=== PATIENT | female | born 1950 | race Caucasian/White ===

== ENCOUNTER → 2023-10-14 06:20 | Day surgery (SDC) | payer BC, SELFPAY | LOC: GI 06:20 | PROVIDERS: ATTENDING PHYSICIAN Internal Medicine Gastroenterology; FAMILY PHYSICIAN Internal Medicine | DX: K63.5 Polyp of colon (principal); K57.30 Diverticulosis of large intestine without perforation or abscess without bleeding; D12.8 Benign neoplasm of rectum; Z86.010 Personal history of colon polyps | CPT/HCPCS: 45380; 88305 ==

== ENCOUNTER → 2023-10-21 14:29 | Outpatient (REF) | payer BC, SELFPAY ==
[2023-10-21 15:35] LABS: ALT (SGPT) 36 U/L (0-35); AST (SGOT) 34 U/L (14-36); Alkaline Phosphatase 56 U/L (38-126); Blood Urea Nitrogen 35 mg/dl (7-17); Calcium 9.8 mg/dl (8.4-10.2); Carbon Dioxide 31 mmol/L (22-30); Chloride 96 mmol/L (98-107); Glucose 104 mg/dl (70-99); Potassium 4.8 mmol/L (3.5-5.1); Sodium 134 mmol/L (135-145); Total Bilirubin 0.6 mg/dl (0.2-1.3); Total Protein 6.7 g/dl (6.3-8.2); eGFR 59.86
== END ==
LOC: REG 14:29
PROVIDERS: ATTENDING PHYSICIAN Physician Assistant Medical
DX: E87.8 Other disorders of electrolyte and fluid balance, not elsewhere classified (principal)
CPT/HCPCS: 36415; 80053

== ENCOUNTER → 2023-11-09 14:04 | Outpatient (REF) | payer BC, SELFPAY | LOC: WDC 14:04 | PROVIDERS: ATTENDING PHYSICIAN Physician Assistant Medical; FAMILY PHYSICIAN Internal Medicine | DX: M81.0 Age-related osteoporosis without current pathological fracture (principal); Z12.31 Encounter for screening mammogram for malignant neoplasm of breast; Z85.3 Personal history of malignant neoplasm of breast | CPT/HCPCS: 77063; 77067; 77080 ==

== ENCOUNTER → 2024-06-20 08:32 | Outpatient (REF) | payer BC, SELFPAY ==
[2024-06-20 09:48] LABS: % Basophils 1.6 % (0-2); % Eosinophils 12.5 % (0-6); % Immature Granulocytes 0.7 % (0-0.5); % Lymphocytes 32.3 % (20.5-51.1); % Monocytes 11.2 % (1.7-9.3); % Neutrophils 41.7 % (42.2-75.2); Absolute Basophils 0.1 10^3/uL (0-0.2); Absolute Eosinophils 0.6 10^3/uL (0-0.7); Absolute Lymphocytes 1.4 10^3/uL (1.2-3.4); Absolute Monocytes 0.5 10^3/uL (0.1-0.6); Absolute Neutrophils 1.8 10^3/uL (1.4-6.5); Hematocrit 36.1 % (37.0-47.0); Hemoglobin 12.3 g/dL (12.0-16.0); Mean Corp Hgb Conc. 34.1 g/dL (33.0-37.0); Mean Corpuscular Hgb 30.8 pg (27.0-31.0); Mean Corpuscular Volume 90.5 fL (81.0-99.0); Mean Platelet Volume 9.4 fL (7.4-10.4); Nucleated Red Blood Cells % 0 %; Platelet Count 294 10^3/uL (130-400); Red Blood Cell Count 3.99 10^6/uL (4.20-5.40); Red Cell Dist. Width 14.8 % (11.5-14.5); White Blood Cell Count 4.4 10^3/uL (4.8-10.8)
[2024-06-20 10:30] LABS: ALT (SGPT) 22 U/L (0-35); AST (SGOT) 29 U/L (14-36); Albumin 4.3 g/dl (3.5-5.0); Alkaline Phosphatase 45 U/L (38-126); Blood Urea Nitrogen 21 mg/dl (7-17); Calcium 9.7 mg/dl (8.4-10.2); Carbon Dioxide 28 mmol/L (22-30); Chloride 96 mmol/L (98-107); Glucose 86 mg/dl (70-99); Iron 110 ug/dl (37-170); Sodium 133 mmol/L (135-145); Total Bilirubin 0.7 mg/dl (0.2-1.3); Total Cholesterol 225 mg/dl (50-199); Triglyceride 114 mg/dl (10-149); Very Low Density Lipoprotein 22 mg/dl (0-30); eGFR > 60.00
[2024-06-20 10:39] LABS: HDL Cholesterol 111 mg/dl; LDL Cholesterol, Calculated 92 mg/dl; Percent Saturation 36 % (20-50); Total Iron Binding Capacity 302 ug/dl (265-497)
[2024-06-20 10:47] LABS: Vitamin D, 25-OH*** 46.1 ng/mL (30-80)
[2024-06-20 10:56] LABS: Glycohemoglobin (HgbA1c) 5.2 % (4.0-5.6)
[2024-06-20 11:00] LABS: Microalbumin, Random Urine < 0.6 mg/dl (0.6-1.7)
[2024-06-20 11:04] LABS: Ferritin 22.2 ng/ml (11.1-264.0)
[2024-06-20 11:35] LABS: Folate > 20.0 ng/ml (2.76-20); Vitamin B12 724 pg/ml (239-931)
== END ==
LOC: REG 08:32
PROVIDERS: ATTENDING PHYSICIAN Family Medicine
DX: R73.09 Other abnormal glucose (principal); R94.4 Abnormal results of kidney function studies; E78.00 Pure hypercholesterolemia, unspecified; D72.819 Decreased white blood cell count, unspecified; D64.9 Anemia, unspecified; E22.2 Syndrome of inappropriate secretion of antidiuretic hormone; I10 Essential (primary) hypertension; R74.8 Abnormal levels of other serum enzymes; M81.0 Age-related osteoporosis without current pathological fracture; R79.89 Other specified abnormal findings of blood chemistry
CPT/HCPCS: 36415; 80053; 80061; 82043; 82306; 82570; 82607; 82728; 82746; 83036; 83540; 83550; 85025

== ENCOUNTER 2024-09-12 06:29 | Day surgery (SDC) | payer BC, SELFPAY ==
[2024-09-11 11:33] LABS: Hematocrit 36.5 % (37.0-47.0); Mean Corp Hgb Conc. 32.9 g/dL (33.0-37.0); Mean Corpuscular Hgb 30.4 pg (27.0-31.0); Mean Corpuscular Volume 92.4 fL (81.0-99.0); Mean Platelet Volume 9.5 fL (7.4-10.4); Platelet Count 311 10^3/uL (130-400); Red Blood Cell Count 3.95 10^6/uL (4.20-5.40); Red Cell Dist. Width 14.6 % (11.5-14.5); White Blood Cell Count 5.1 10^3/uL (4.8-10.8)
[2024-09-11 11:57] LABS: Blood Urea Nitrogen 28 mg/dl (7-17); Calcium 9.4 mg/dl (8.4-10.2); Carbon Dioxide 27 mmol/L (22-30); Chloride 97 mmol/L (98-107); Glucose 91 mg/dl (70-99); Potassium 4.7 mmol/L (3.5-5.1); Sodium 132 mmol/L (135-145); eGFR > 60.00
[2024-09-11 13:34] VITALS: BMI 23.0
[2024-09-12] VITALS (8 sets, daily range): BP systolic 133–156; BP diastolic 60–81; BMI 23.0
[2024-09-12] MEDS: Pyridium 200 MG PO (13:53)
[2024-09-12] MEDS: HEPARIN 5000 UNITS SC (13:54)
[2024-09-12] MEDS: NORMOSOL-R/PLASMALYTE-A 1000 IV (13:55)
== END 2024-09-12 19:55 | disposition home or self-care (01) ==
LOC: SDS 06:29
PROVIDERS: ATTENDING PHYSICIAN Obstetrics & Gynecology; FAMILY PHYSICIAN Family Medicine
DX: N81.3 Complete uterovaginal prolapse (principal); N39.3 Stress incontinence (female) (male); N95.8 Other specified menopausal and perimenopausal disorders; D25.1 Intramural leiomyoma of uterus; D25.0 Submucous leiomyoma of uterus; N83.8 Other noninflammatory disorders of ovary, fallopian tube and broad ligament
CPT/HCPCS: 57425; 58571; 57250; 57288; 88305; 36415; 80048; 85027; 86850; 86900; 86901; 93005; C1763; C1771; J1580

== ENCOUNTER → 2024-11-14 08:45 | Outpatient (REF) | payer BC, SELFPAY | LOC: WDC 08:45 | PROVIDERS: ATTENDING PHYSICIAN Obstetrics & Gynecology; FAMILY PHYSICIAN Family Medicine | DX: Z12.31 Encounter for screening mammogram for malignant neoplasm of breast (principal) | CPT/HCPCS: 77063; 77067 ==

== ENCOUNTER → 2024-11-27 09:31 | Outpatient (REF) | payer BC, SELFPAY | LOC: WDC 09:31 | PROVIDERS: ATTENDING PHYSICIAN Obstetrics & Gynecology; FAMILY PHYSICIAN Family Medicine | DX: R92.8 Other abnormal and inconclusive findings on diagnostic imaging of breast (principal) | CPT/HCPCS: 77065 ==

== ENCOUNTER → 2024-11-29 06:21 | Outpatient (REF) | payer BC, SELFPAY ==
--- NOTE | 2024-11-29 12:28 | OID.BR.INTR ---
[facility] Breast Navigator - Initial
- -
Did not meet patient at time of biopsy. Will follow up per protocol.
== END ==
LOC: WDC 06:21
PROVIDERS: ATTENDING PHYSICIAN Obstetrics & Gynecology; FAMILY PHYSICIAN Family Medicine
DX: R92.1 Mammographic calcification found on diagnostic imaging of breast (principal)
CPT/HCPCS: 88305; 19081; 76098; A4648

== ENCOUNTER 2024-12-12 08:31 | Outpatient (RCR) | payer BC, SELFPAY | END 2024-12-12 23:59 | disposition home or self-care (01) | LOC: RPT 08:31 | PROVIDERS: ATTENDING PHYSICIAN Obstetrics & Gynecology; FAMILY PHYSICIAN Family Medicine | DX: N39.43 Post-void dribbling (principal); R32 Unspecified urinary incontinence; R15.1 Fecal smearing; Z73.6 Limitation of activities due to disability; M62.81 Muscle weakness (generalized) | CPT/HCPCS: 97163; 97530 ==

== ENCOUNTER 2025-01-24 13:14 | Outpatient (RCR) | payer BC, SELFPAY | END 2025-01-24 23:59 | disposition home or self-care (01) | LOC: RPT 13:14 | PROVIDERS: ATTENDING PHYSICIAN Obstetrics & Gynecology; FAMILY PHYSICIAN Family Medicine | DX: N39.43 Post-void dribbling (principal); R32 Unspecified urinary incontinence; R15.1 Fecal smearing; Z73.6 Limitation of activities due to disability; M62.81 Muscle weakness (generalized) | CPT/HCPCS: 97014; 97110; 97112; 97140; 97530 ==

== ENCOUNTER 2025-03-02 09:55 | Outpatient (RCR) | payer BC, SELFPAY | END 2025-03-02 23:59 | disposition home or self-care (01) | LOC: RPT 09:55 | PROVIDERS: ATTENDING PHYSICIAN Obstetrics & Gynecology; FAMILY PHYSICIAN Family Medicine | DX: N39.43 Post-void dribbling (principal); R32 Unspecified urinary incontinence; R15.1 Fecal smearing; M62.81 Muscle weakness (generalized); Z73.6 Limitation of activities due to disability | CPT/HCPCS: 97014; 97112; 97140; 97530 ==

== ENCOUNTER → 2025-03-13 08:38 | Outpatient (REF) | payer BC, SELFPAY ==
[2025-03-13 09:17] LABS: Hematocrit 32.7 % (37.0-47.0); Hemoglobin 11.1 g/dL (12.0-16.0); Mean Corp Hgb Conc. 33.9 g/dL (33.0-37.0); Mean Corpuscular Volume 91.1 fL (81.0-99.0); Nucleated Red Blood Cells % 0 %; Platelet Count 271 10^3/uL (130-400); Red Cell Dist. Width 15.9 % (11.5-14.5)
[2025-03-13 10:06] LABS: ALT (SGPT) 41 U/L (0-35); AST (SGOT) 28 U/L (14-36); Albumin 4.2 g/dl (3.5-5.0); Alkaline Phosphatase 58 U/L (38-126); Blood Urea Nitrogen 25 mg/dl (7-17); Calcium 9.7 mg/dl (8.4-10.2); Carbon Dioxide 25 mmol/L (22-30); Chloride 104 mmol/L (98-107); Glucose 91 mg/dl (70-99); HDL Cholesterol 101 mg/dl; LDL Cholesterol, Calculated 108 mg/dl; Potassium 4.7 mmol/L (3.5-5.1); Sodium 135 mmol/L (135-145); Total Protein 6.8 g/dl (6.3-8.2); Very Low Density Lipoprotein 17 mg/dl (0-30); eGFR > 60.00
[2025-03-13 10:50] LABS: Microalb - Urine Creatinine 59.000 mg/dl
[2025-03-13 10:53] LABS: Microalbumin, Random Urine < 0.6 mg/dl (0.6-1.7)
== END ==
LOC: REG 08:38
PROVIDERS: ATTENDING PHYSICIAN Family Medicine
DX: I10 Essential (primary) hypertension (principal); E22.2 Syndrome of inappropriate secretion of antidiuretic hormone; E78.00 Pure hypercholesterolemia, unspecified; Z85.3 Personal history of malignant neoplasm of breast; D72.819 Decreased white blood cell count, unspecified; R94.4 Abnormal results of kidney function studies
CPT/HCPCS: 36415; 80053; 80061; 82043; 82570; 84443; 85025

== ENCOUNTER 2025-03-14 11:52 | Emergency (ER) | payer BC, SELFPAY ==
[2025-03-14 11:53] VITALS: BP 153/86
--- NOTE | 2025-03-14 15:16 | ED.GENMED ---
History of Present Illness
General
Chief Complaint: Heart Rate Problem
Source: patient
Time Seen by Provider: 03/14/25 14:46
History of Present Illness
History of Present Illness:
75-year-old female presenting to the ER with past medical history of hypertension and SIADH presenting to the ER for evaluation of palpitations that been ongoing for the last 2 weeks, not any worse today but patient wanted to make sure that there
was not any abnormalities. She had outpatient lab work done with primary care provider yesterday and was told that there was a mild anemia but as far she knows no other abnormalities. She notes there is no other associated symptoms with the
palpitations including chest pain, shortness of breath, exertional dyspnea, orthopnea, lower extremity edema, cough, fevers or infectious symptoms. Patient reports good compliance with her antihypertensive regimen. Social history noncontributory
Past History
Past History
ED Past Medical History: HTN and Other (SIADH)
ED Past Surgical History: Gynecological and Tonsilectomy
Social History
Tobacco: Non-smoker
Alcohol: None
Drug: None
Personal:
Living: with family
Review of Systems
Review of Systems
All Other Systems: ROS reviewed and negative except as documented in HPI and ROS
Phy Exam
Physical Exam
Physical Exam:
GENERAL: Alert , in no apparent distress
EYE: conjunctiva clear
NECK: Supple
ENT: o/p clr, mmm.
CARDIAC: Regular rate and rhythm, occasional ectopic beat
LUNGS: Clear breath sounds bilaterally, no acute respiratory distress, no wheezes/rales/rhonchi
NEUROLOGICAL: Alert and oriented
SKIN: Warm and dry, skin intact.
MUSCULOSKELETAL: well perfused.
PSYCH: Normal and appropriate interaction.
Scores
Heart Failure Risk
Heart Failure Risk Score: Not Applicable
Heart Score for Chest Pain Patients
STEMI patient?: Not applicable
Withdrawal Assessment of Alcohol
Withdrawal Assessment Completed?: Not applicable
Course
Orders/Labs/Results
Orders:
Orders
03/14/25 11:52
EKG [Electrocardiogram (*1)] Urgent
Reason for Study: Palpitations
03/14/25 11:53
EKG- Treatment ONCE
03/14/25 15:16
CR Chest - 2 Views Urgent
Comment:
Reason For Exam: palpitations
Vital Signs
Initial and Last Documented VS:
Initial Vital Signs
Temp Pulse Resp BP Pulse Ox
98.1 F 68 18 153/86 99
03/14/25 11:53 03/14/25 11:53 03/14/25 11:53 03/14/25 11:53 03/14/25 11:53
Last Documented Vital Signs
Temp Pulse Resp BP Pulse Ox
98.1 F 68 18 153/86 99
03/14/25 11:53 03/14/25 11:53 03/14/25 11:53 03/14/25 11:53 03/14/25 15:16
MDM/Problems Addressed
Differential Diagnosis Includes:
Cardiac Arrhythmia
Valvular Dysfunction
ACS
Thyroid Dysfunction
Electrolyte Imbalance
Hypertension/Hypertensive urgency
Anxiety
MDM/Problems Addressed:
75-year-old female presented the ER for evaluation of 2+ weeks of palpitations, not getting any better so decided to come to the ER. She is otherwise asymptomatic. No chest pain, no shortness of breath, no cough, exertional dyspnea or any other
concerns. Frequent PACs noted on telemetry. Had outpatient labs done yesterday which did show a mild anemia but otherwise unremarkable. Normal thyroid studies. Will obtain chest x-ray. Patient already has appointment scheduled with primary care
provider for early next week. Will refer to cardiology as patient will likely need Holter monitor and potentially echocardiogram for further evaluation. Patient aware of return precautions to the ER.
*Radiology
Radiology exam reviewed: preliminary read by ED provider (no infiltrates/effusions)
*Pulse Oximetry
SaO2: 99
Oxygen Mode of Delivery: Room air
Patient hypoxic: no
*EKG
Interpreted by ED Provider?: Yes
Heart Rate: 73
Rate: normal
Rhythm: sinus and PAC's
[place]: normal axis
Ischemia: no ischemia
*[employer] Interpretation
Rate: normal
Heart Rate: 67
Rhythm: sinus and PAC's
*Critical Care Note
Total Time (30-74mins, 75-104mins- exclusive of procedures): Not Applicable
Data Reviewed
Review of Other/Old Records Reveals: Labs and Records
ED Attending Note
-
Portions of this chart may have been created with voice recognition software.� Occasional wrong word or��sound alike� substitutions may have occurred due to the inherent limitations of voice recognition software.
Discharge Plan
Departure
Patient Disposition: Home (Routine Discharge)
Date of Disposition: 03/14/25
Time of Disposition: 15:42
Patient with high blood pressure during this ER visit?: Yes
Discharge Problem:
Palpitations
Instructions: Palpitations (DC)
Prescriptions:
No Action
multivitamin Tablet
1 tab PO DAILY
metoprolol succinate 50 mg Tablet Extended Release 24 Hr
50 mg PO DAILY
amlodipine 2.5 mg Tablet
2.5 mg PO DAILY
lisinopril 5 mg Tablet
5 mg PO HS
PreserVision AREDS 2,148 mcg-113 mg-45 mg-17.4mg Tablet
1 tab PO DAILY
estradiol [Estrace] 0.01 % (0.1 mg/gram) Cream
1 g VAGINAL SUTH
ascorbic acid (vitamin C) [Vitamin C] 500 mg Tablet
500 mg PO DAILY
Referrals:
Ricardo Albright MD [Active, Cardiology]
Bertha Gallegos MD [Family Provider, Family Practice]
Interventions
Interventions:
*Risk Screen - Suicide Last Done: 03/14/25 11:53
*General Assessment Last Done: 03/14/25 14:43
*Neglect/Abuse Screening Last Done: 03/14/25 11:53
*ED- Fall Risk Assessment Last Done: 03/14/25 14:43
*Nursing Disposition Last Done: 03/14/25 15:49
ED- Cardiac Assessment Last Done: 03/14/25 14:43
ED- Pulmonary Assessment Last Done: 03/14/25 14:43
Discharge Date and Time
Discharge Date/Time: 03/14/25 16:18
Print Language: MALAYSIAN
== END 2025-03-14 16:18 | disposition home or self-care (01) ==
LOC: EMR 11:52
PROVIDERS: EMERGENCY PHYSICIAN Emergency Medicine; FAMILY PHYSICIAN Family Medicine
DX: R00.2 Palpitations (principal); I10 Essential (primary) hypertension; E22.2 Syndrome of inappropriate secretion of antidiuretic hormone; D64.9 Anemia, unspecified
CPT/HCPCS: 99283; 71046; 93005

== ENCOUNTER → 2025-03-21 08:55 | Outpatient (REF) | payer BC, SELFPAY | LOC: RCS 08:55 | PROVIDERS: ATTENDING PHYSICIAN Family Medicine | DX: R00.2 Palpitations (principal) | CPT/HCPCS: 93225; 93226 ==

== ENCOUNTER → 2025-03-29 08:22 | Outpatient (REF) | payer BC, SELFPAY ==
[2025-03-29 09:20] LABS: Hematocrit 33.4 % (37.0-47.0); Hemoglobin 11.3 g/dL (12.0-16.0); Mean Corp Hgb Conc. 33.8 g/dL (33.0-37.0); Mean Corpuscular Volume 91.0 fL (81.0-99.0); Nucleated Red Blood Cells % 0 %; Platelet Count 257 10^3/uL (130-400); Red Cell Dist. Width 15.5 % (11.5-14.5)
[2025-03-29 11:24] LABS: ALT (SGPT) 25 U/L (0-35); AST (SGOT) 24 U/L (14-36); Albumin 4.1 g/dl (3.5-5.0); Alkaline Phosphatase 51 U/L (38-126); Blood Urea Nitrogen 22 mg/dl (7-17); Calcium 9.4 mg/dl (8.4-10.2); Carbon Dioxide 28 mmol/L (22-30); Chloride 101 mmol/L (98-107); Glucose 89 mg/dl (70-99); Iron 87 ug/dl (37-170); Potassium 4.9 mmol/L (3.5-5.1); Sodium 133 mmol/L (135-145); Total Protein 6.6 g/dl (6.3-8.2); eGFR > 60.00
[2025-03-29 11:36] LABS: Total Iron Binding Capacity 317 ug/dl (265-497)
[2025-03-29 12:14] LABS: Ferritin 18.8 ng/ml (11.1-264.0)
== END ==
LOC: REG 08:22
PROVIDERS: ATTENDING PHYSICIAN Family Medicine
DX: D64.9 Anemia, unspecified (principal); R74.8 Abnormal levels of other serum enzymes
CPT/HCPCS: 36415; 80053; 82728; 83540; 83550; 85025

== ENCOUNTER → 2025-03-30 10:12 | Outpatient (REF) | payer BC, SELFPAY | LOC: RCS 10:12 | PROVIDERS: ATTENDING PHYSICIAN Family Medicine | DX: R00.2 Palpitations (principal); I10 Essential (primary) hypertension | CPT/HCPCS: 93306 ==

== ENCOUNTER 2025-04-05 08:56 | Outpatient (RCR) | payer BC, SELFPAY | END 2025-04-05 23:59 | disposition home or self-care (01) | LOC: RPT 08:56 | PROVIDERS: ATTENDING PHYSICIAN Obstetrics & Gynecology; FAMILY PHYSICIAN Family Medicine | DX: N39.43 Post-void dribbling (principal); R15.1 Fecal smearing; Z73.6 Limitation of activities due to disability; M62.81 Muscle weakness (generalized); R32 Unspecified urinary incontinence | CPT/HCPCS: 97110; 97112; 97140; 97530 ==

== ENCOUNTER → 2025-04-11 12:47 | Outpatient (REF) | payer BC, SELFPAY | LOC: RAD 12:47 | PROVIDERS: ATTENDING PHYSICIAN Family Medicine | DX: I71.9 Aortic aneurysm of unspecified site, without rupture (principal) | CPT/HCPCS: 71275; Q9967 ==

== ENCOUNTER 2025-05-10 09:05 | Outpatient (RCR) | payer BC, SELFPAY | END 2025-05-10 23:59 | disposition home or self-care (01) | LOC: RPT 09:05 | PROVIDERS: ATTENDING PHYSICIAN Obstetrics & Gynecology; FAMILY PHYSICIAN Family Medicine | DX: N39.43 Post-void dribbling (principal); R15.1 Fecal smearing; Z73.6 Limitation of activities due to disability; M62.81 Muscle weakness (generalized); R32 Unspecified urinary incontinence | CPT/HCPCS: 97112; 97530 ==

== ENCOUNTER 2025-07-02 06:13 | Day surgery (SDC) | payer BC, SELFPAY ==
[2025-06-27 11:09] LABS: Hematocrit 37.2 % (37.0-47.0); Hemoglobin 12.6 g/dL (12.0-16.0); Mean Corp Hgb Conc. 33.9 g/dL (33.0-37.0); Mean Corpuscular Volume 89.6 fL (81.0-99.0); Platelet Count 293 10^3/uL (130-400); Red Cell Dist. Width 14.6 % (11.5-14.5)
[2025-06-27 11:36] LABS: Blood Urea Nitrogen 22 mg/dl (7-17); Calcium 9.6 mg/dl (8.4-10.2); Carbon Dioxide 28 mmol/L (22-30); Chloride 103 mmol/L (98-107); Glucose 84 mg/dl (70-99); Potassium 5.4 mmol/L (3.5-5.1); Sodium 136 mmol/L (135-145); eGFR 52.73
[2025-06-27 14:10] VITALS: BMI 23.9
[2025-07-02] VITALS (7 sets, daily range): BP systolic 100–148; BP diastolic 55–72; BMI 23.9
[2025-07-02] MEDS: NORMOSOL-R/PLASMALYTE-A 1000 IV (09:54)
== END 2025-07-02 12:18 | disposition home or self-care (01) ==
LOC: SDS 06:13
PROVIDERS: ATTENDING PHYSICIAN Obstetrics & Gynecology; FAMILY PHYSICIAN Family Medicine
DX: N36.42 Intrinsic sphincter deficiency (ISD) (principal); N39.3 Stress incontinence (female) (male)
CPT/HCPCS: 51715; 36415; 80048; 85027; L8606

== ENCOUNTER → 2025-08-09 09:48 | Outpatient (REF) | payer BC, SELFPAY | LOC: CLAB 09:48 | PROVIDERS: ATTENDING PHYSICIAN Obstetrics & Gynecology | DX: N39.0 Urinary tract infection, site not specified (principal) | CPT/HCPCS: 87086 ==